=== PATIENT | female | born 1990 | race African-American/Black ===

== ENCOUNTER 2016-12-29 02:08 | Emergency (ER) | payer OTHER | END 2016-12-29 02:13 | disposition home or self-care (01) | LOC: CED 02:08 | DX: T23.001A Burn of unspecified degree of right hand, unspecified site, initial encounter (principal); X19.XXXA Contact with other heat and hot substances, initial encounter; Y92.009 Unspecified place in unspecified non-institutional (private) residence as the place of occurrence of the external cause | CPT/HCPCS: 99283 ==